=== PATIENT | female | born 1990 | race Caucasian/White ===

== ENCOUNTER 2021-08-08 21:32 | Emergency (ER) | payer OTHER, MEDICAID, SELFPAY ==
[2021-08-08 21:36] VITALS: BP 185/95; PULSE 105; RESP 16; TEMP 36.6; O2SAT 99; BMI 25.0
[2021-08-08 23:20] VITALS: BP 172/90; PULSE 85; O2SAT 99
[2021-08-08 23:30] VITALS: BP 144/90; PULSE 95; O2SAT 99
--- NOTE | 2021-08-08 23:49 | PC.NURSE ---
Pt states that she's been unable to contact her psychiatrist for refills of her meds and she's been out for several days. She's requesting help with refills of: Xanex destroamphetamine 25mg ER Adderal tizanidine gabapentin diclofenac Welbutrin nicotine patches Pt reports that she was sustained injury to her neck on 07/28 and was seen at [facility]. Pt declines to describe injury or mechanism. Pt educated that we are unable to provide refills of controlled substances through the ED. She verbalized understanding. PT given warm blankets for comfort.
[2021-08-09] VITALS: BP 130/88; PULSE 79; O2SAT 99
[2021-08-09 00:30] VITALS: BP 139/90; PULSE 88; O2SAT 98
--- NOTE | 2021-08-09 00:43 | ED.HA ---
HPI - Headache General Chief Complaint: Headache Stated Complaint: HEADACHES Time Seen by Provider: 08/09/21 00:17 Source: patient Mode of arrival: Ambulatory Limitations: no limitations History of Present Illness HPI Narrative: The patient describes a fall about 1 week ago. She has a home, coming down from a loft. She stumbled, falling forward and striking the apex of her head on the floor. Her neck was hyperextended. She describes a workup at [place], [place]. She apparently underwent CT of head and neck. She has mild headache, and ongoing neck tightness. She has no peripheral weakness or numbness. She is on no new prescription medications for headache. She takes naps sitting and gabapentin for TMJ/tooth grinding. She also takes diclofenac. This helps with the headaches. She does have mild stomach upset the medications. She has no visual changes, confusion, peripheral weakness or numbness. She refused a test from the triage nurse. She indicates to me she is . She again refuses testing. Additionally, she takes Xanax, Wellbutrin, and an ADD medication. This was not revealed at triage. Related Data Allergies Allergy/AdvReac Type Severity Reaction Status Date / Time acetaminophen [From Percocet] Allergy Unknown Verified 08/09/21 00:59 oxycodone [From Percocet] Allergy Unknown Verified 08/09/21 00:59 Review of Systems Constitutional Constitutional: Denies body ache(s), Denies chills, Denies fatigue, Denies fever(s), Denies frequent falls and Reports headache(s) Eyes Eyes: Denies exophthalmos and Denies change in vision ENT Ears, Nose, Mouth, and Throat: Denies vertigo, Denies dizziness, Denies dry mouth, Denies ear discharge, Reports facial pain, Reports headache(s) and Denies neck pain Cardiovascular Cardiovascular: Denies chest pain, Denies rapid heart rate and Denies dyspnea Respiratory Respiratory: Denies dyspnea Genitourinary Genitourinary: Denies dysuria Musculoskeletal Musculoskeletal: Denies myalgias, Denies neck pain and Denies numbness Integumentary/Breasts Skin/Breast: Denies rash Neurologic Neurologic: Denies vertigo, Denies dizziness, Denies frequent falls, Reports headache(s) and Denies numbness Psychiatric Psychiatric: Reports paranoia (Preferring not to discuss her PMH.) Endocrine Endocrine: Denies fatigue Patient History Medical History (Updated 08/09/21 @ 01:15 by Jeffy Vargas MD) ADD (attention deficit disorder) Social History Smoking Status: Current every day smoker Smoking Status: Current every day smoker tobacco type: cigarettes and vaping alcohol intake frequency: holidays/special occasions only Substance Use Type: does not use Exam Initial Vital Signs Initial Vital Signs: Vital Signs Temperature 98 F 08/08/21 21:36 Pulse Rate 105 H 08/08/21 21:36 Respiratory Rate 16 08/08/21 21:36 Blood Pressure 185/95 H 08/08/21 21:36 Pulse Oximetry 99 08/08/21 21:36 Const General: cooperative Orientation: Orientation HENNE Head: normal to inspection, normocephalic and atraumatic Face and sinus: normal facial exam Mouth: oral mucosae normal Throat: posterior oropharynx normal Eyes Visual Cristina: normal visual cristina by confrontation Conjunctivae: conjunctivae normal Sclera: sclerae normal Pupils: PERRL EOM: EOM intact bilaterally Neck Neck: normal visual inspection Other: Mild tenderness along the central cervical spine into the upper thoracic region. Mild paracervical spasm bilaterally. Resp Effort & Inspection: normal respiratory effort Cardio Rate: regular rate Rhythm: regular rhythm Heart Sounds: S1 normal and S2 normal Back/Spine/Pelvis Back: normal to inspection and No back tenderness Skin General: no rashes or lesions noted Neuro General: patient alert, patient awake, patient oriented x3 and no focal motor deficits Extrem General: normal to inspection and full ROM Psych Other: Paranoid. Minimal, closed conversation only. [place] x3. No psychosis. Course Course Course Narrative: The patient initially denied a test, stating she may be . She has tenderness for refills of her ADD medications and Xanax. This was declined. She done ask me for refills. She discussed the headache as noted above. She discussed the medications revolving around pain. I would noted to we could do more if we knew her status, she then tells me she is . I have given Tylenol for pain. She must stop the diclofenac with . She should take only Tylenol given the degree for symptoms, and talked to her doctor about all other medications. Vital Signs Vital signs: Vital Signs - 8 hr 08/08/21 21:36 08/08/21 23:20 08/08/21 23:30 Temperature 98 F Pulse Rate 105 H 85 95 H Respiratory Rate 16 Blood Pressure 185/95 H 172/90 H 144/90 H Pulse Oximetry 99 99 99 08/09/21 00:00 Temperature Pulse Rate 79 Respiratory Rate Blood Pressure 130/88 Pulse Oximetry 99 Discharge Plan Departure Patient Disposition: Home Clinical Impression: Headache Instructions: DI for Headache Activity Restrictions/Additional Instructions: Tylenol 2 tablets every 4 hours as needed for headache or neck pain. You indicated an appointment with your doctor tomorrow. Discuss all your medications with your doctor, notify your doctor you are . Return here as needed.
[2021-08-09 01:00] VITALS: BP 160/93; PULSE 78; O2SAT 98
[2021-08-09] MEDS: ACETAMINOPHEN 325 MG TABLET 650 MG PO (01:03)
== END 2021-08-09 01:20 | disposition home or self-care (01) ==
PROVIDERS: Emergency Provider Emergency Medicine
DX: R51.9 Headache, unspecified (principal); M54.2 Cervicalgia
CPT/HCPCS: 99283